=== PATIENT | female | born 1970 | race Caucasian/White ===

== ENCOUNTER 2016-11-19 09:06 | Emergency (ER) | payer OTHER ==
[~2016-11-19] VITALS: Ht 172.7 cm; Wt 63.0 kg
--- OUTSIDE RECORDS SUMMARY | 2016-11-19 09:14 | XMS REPORT | Continuity Of Care Document ---
Author Author [facility] Organization [facility] Address [address] [place] [address] Phone Care Team Providers Care Director [employer] Name Role Phone UNASSIGNED, PHYSICIAN Unavailable Unavailable GI DUFFY, Enio CP CESAR DUFFY, Hussein AT MURPHY CARMONA PP Results Lab Results Visit/Account #[id number] (August 22, 2015 9:16am - August 23, 2015 10:08am) Test Result Date/Time 58666-1: COMPLETE BLOOD COUNT WITH DIFF WHITE BLOOD COUNT(4.0-11.0 10E3/UL) 9.3 10E3/UL August 22, 2015 8:40am RED BLOOD COUNT(4.00-5.20 10E6/UL) 4.10 10E6/UL August 22, 2015 8:40am HEMOGLOBIN(12.0-16.0 G/DL) 12.8 G/DL August 22, 2015 8:40am HEMATOCRIT(36.0-46.0 %) 37.9 % August 22, 2015 8:40am MEAN CORPUSCULAR VOLUME(82.0-100.0 FL) 92.4 FL August 22, 2015 8:40am 27714-4: MEAN CORPUSCULAR HEMOGLOBIN(26.0-34.0 PG) 31.2 PG August 22, 2015 8:40am MEAN CORPUSCULAR HGB CONC(31.5-36.5 G/DL) 33.8 G/DL August 22, 2015 8:40am RED CELL DISTRIBUTION WIDTH(11.5-14.5 %) 12.5 % August 22, 2015 8:40am 777-3: PLATELET COUNT(150-450 10E3/UL) 174 10E3/UL August 22, 2015 8:40am MEAN PLATELET VOLUME(8.2-12.4 FL) 10.3 FL August 22, 2015 8:40am 770-8: NEUTROPHILS % (AUTO)(40-70 %) 85 % August 22, 2015 8:40am LYMPHOCYTES % (AUTO)(15-45 %) 9 % August 22, 2015 8:40am 5905-5: MONOCYTES % (AUTO)(2-10 %) 6 % August 22, 2015 8:40am 713-8: EOSINOPHILS % (AUTO)(0-6 %) 0 % August 22, 2015 8:40am 706-2: BASOPHILS % (AUTO)(0-1 %) 0 % August 22, 2015 8:40am 58186-2: IMMATURE GRANS % (AUTO)(0-0 %) 0 % August 22, 2015 8:40am NUCLEATED RBCS (AUTO)(0-0 %) 0 % August 22, 2015 8:40am 751-8: NEUTROPHILS # (AUTO)(2.5-7.5 10E3/UL) 7.9 10E3/UL August 22, 2015 8:40am 67685-9: LYMPHOCYTES # (AUTO)(1.0-4.0 10E3/UL) 0.8 10E3/UL August 22, 2015 8:40am 742-7: MONOCYTES # (AUTO)(0.2-0.8 10E3/UL) 0.6 10E3/UL August 22, 2015 8:40am 711-2: EOSINOPHILS # (AUTO)(0.0-0.4 10E3/UL) 0.0 10E3/UL August 22, 2015 8:40am 704-7: BASOPHILS # (AUTO)(0.0-0.2 10E3/UL) 0.0 10E3/UL August 22, 2015 8:40am IMMATURE GRANS # (AUTO)(0.0-0.0 10E3/UL) 0.0 10E3/UL August 22, 2015 8:40am DIFF TYPE AUTOMATED August 22, 2015 8:40am UA WITH SCREEN FOR CULTURE 5778-6: COLOR,URINE YELLOW August 22, 2015 9:30am 07414-2: CLARITY,URINE CLEAR August 22, 2015 9:30am GLUCOSE, URINE(NEGATIVE MG/DL) NEGATIVE MG/DL August 22, 2015 9:30am URINE BILIRUBIN(NEGATIVE) NEGATIVE August 22, 2015 9:30am 44716-1: KETONES,URINE(NEGATIVE MG/DL) NEGATIVE MG/DL August 22, 2015 9:30am 2965-2: URINE SPECIFIC GRAVITY(1.001-1.035) Greater than or equal to 1.030 August 22, 2015 9:30am 49933-3: URINE BLOOD(NEGATIVE) NEGATIVE August 22, 2015 9:30am 2756-5: URINE PH(5.0-9.0) 6.5 August 22, 2015 9:30am URINE PROTEIN(Less than 20 MG/DL) NEGATIVE MG/DL August 22, 2015 9:30am URINE UROBILINOGEN(0.2-1.0 MG/DL) 0.2 MG/DL August 22, 2015 9:30am URINE NITRITE(NEGATIVE) NEGATIVE August 22, 2015 9:30am 5799-2: LEUKOCYTE ESTERASE ,URINE(NEGATIVE) NEGATIVE August 22, 2015 9:30am 630-4: URINE CULTURE NOT INDICATED August 22, 2015 9:30am URINE MICROSCOPIC REQUIRED NO August 22, 2015 9:30am 11759-5: COMPLETE METABOLIC PROFILE GLUCOSE(70-110 MG/DL) 161 MG/DL August 22, 2015 8:40am BLOOD UREA NITROGEN(6-20 MG/DL) 11 MG/DL August 22, 2015 8:40am CREATININE(0.50-1.20 MG/DL) 0.77 MG/DL August 22, 2015 8:40am 63950-5: EST GLOMERULAR FILTRATION RATE(Greater than or equal to 60) Greater than or equal to 60 Result Comments: If the patient is of -[place] descent/extraction multiply the eGFR value by 1.212 to obtain the actual eGFR. >=60 mg/dL Normal 30-59 mg/dL Moderate Kidney Disease 15-29 mg/dL Severe Kidney Disease <15 mg/dL Kidney Failure August 22, 2015 8:40am BUN CREATININE RATIO(10.0-20.0 RATIO) 14.0 RATIO August 22, 2015 8:40am SODIUM(135-145 MMOL/L) 133 MMOL/L August 22, 2015 8:40am POTASSIUM(3.6-5.0 MMOL/L) 3.3 MMOL/L August 22, 2015 8:40am CHLORIDE(101-111 MMOL/L) 103 MMOL/L August 22, 2015 8:40am 8-9: CO2(21-31 MMOL/L) 23.0 MMOL/L August 22, 2015 8:40am 87206-7: ANION GAP(8-18) 10 August 22, 2015 8:40am OSMO CALCULATED(270.0-290.0) 269.3 August 22, 2015 8:40am CALCIUM(8.5-10.5 MG/DL) 8.6 MG/DL August 22, 2015 8:40am BILIRUBIN,TOTAL(0.1-1.2 MG/DL) 0.5 MG/DL August 22, 2015 8:40am ALKALINE PHOSPHATASE(42-121 IU/L) 58 IU/L August 22, 2015 8:40am ASPARTATE AMINO TRANSFERASE(10-42 IU/L) 28 IU/L August 22, 2015 8:40am ALANINE AMINOTRANSFERASE(10-60 IU/L) 25 IU/L August 22, 2015 8:40am 20116-7: TOTAL PROTEIN(6.4-8.2 G/DL) 7.8 G/DL August 22, 2015 8:40am ALBUMIN(3.5-5.5 G/DL) 4.3 G/DL August 22, 2015 8:40am 2336-6: GLOBULIN(2.4-3.6) 3.5 August 22, 2015 8:40am ALBUMIN/GLOBULIN RATIO(0.9-1.8 RATIO) 1.2 RATIO August 22, 2015 8:40am 3040-3: LIPASE 3040-3: LIPASE(22-51 U/L) 23 U/L August 22, 2015 8:40am Microbiology Results Visit/Account #[id number] (August 22, 2015 9:16am - August 23, 2015 10:08am) Procedure Result 42728-1: MRSA SCREEN FOR INFEC CONTROL 11151-6: MRSA SCREEN FOR INFEC CONTROL Result Instance On August 22, 2015 3:00pm Source: NARE Special Result Comments: No growth Allergies and Adverse Reactions Allergies and Adverse Reactions Patient Unit Number: [id number] Agent Type Reaction Severity Status PENICILLINS Drug Allergy Unknown Unknown Active ASPIRIN Drug Allergy Unknown Unknown Active Problem List Problem List Visit/Account #[id number] (August 22, 2015 9:16am - August 23, 2015 10:08am) Resolved Problems: Code/Condition Comments Documented Start Date Documented Resolved Date Code (s) Acute appendicitis August 23, 2015 ICD10: K35.80 Acute appendicitis ICD9: 540.9 Acute appendicitis SNOMED: 82694535 Acute appendicitis Plan of Care Plan Of Care Visit/Account #[id number] (August 22, 2015 9:16am - August 23, 2015 10:08am) Patient Instructions Instructions Appendectomy -- Laparoscopic Surgery Ciprofloxacin Metronidazole Oral Hydrocodone Vital Signs Vital Signs Visit/Account #[id number] (August 22, 2015 9:16am - August 23, 2015 10:08am) Sign First Result Last Result Code(s) Blood Pressure 103/ 59 mm[Hg] On August 22, 2015 4:00pm 88/ 54 mm[Hg] On August 23, 2015 5:12am 8480-6 BP Systolic Heart Rate/Pulse Pulse Rate (adult): 74 /min On August 22, 2015 4:00pm Pulse Rate (adult): 60 /min On August 23, 2015 5:12am 8867-4 Heart Rate 8893-0 Pulse rate Respiratory Rate Respiratory Rate: 16 /min On August 22, 2015 4:00pm Respiratory Rate: 16 /min On August 23, 2015 5:12am 9279-1 Respiratory rate Temperature in Fahrenheit Temperature (Fahrenheit): 97.8 [degF] On August 22, 2015 9:15am Temperature (Fahrenheit): 97.5 [degF] On August 23, 2015 5:12am 8310-5 Body Temperature Weight in Kilograms Weight (Kilograms): 94.3 kg On August 22, 2015 9:15am 3141-9 Weight Measured 45000-0 Body weight measured in kilograms Functional Status Functional and Cognitive Status No Functional Status Data Medications Home Medications - Medications that the patient was taking prior to arrival at the hospital Visit/Account #[id number] (August 22, 2015 9:16am - August 23, 2015 10:08am) Medication Route Sig/Schedule Precondition/Indication Comments/ Instructions Codes Cleocin(CLINDAMYCIN HCL) 150 MG CAPSULE Dose: 2 CAP ORAL 4 TIMES DAILY Clindamycin 150 MG Oral Capsule [Cleocin] (RxNorm): 337953 Cleocin (CLINDAMYCIN HCL) NDC: 30934360646 Harvoni 90-400 mg Tablet(LEDIPASVIR/SOFOSBUVIR) 1 EACH TABLET Dose: 90-400 DOSE ORAL DAILY@1700 ledipasvir 90 MG / sofosbuvir 400 MG Oral Tablet [Harvoni] (RxNorm): 3240717 Harvoni 90-400 mg Tablet (LEDIPASVIR/SOFOSBUVIR) NDC: 83755976674 ZANTAC(RANITIDINE HCL) 150 MG TABLET Dose: 150 MG ORAL TWICE A DAY prn Ranitidine 150 MG Oral Tablet [Zantac] (RxNorm): 717666 ZANTAC (RANITIDINE HCL) NDC: 75611132644 TYLENOL PM (500/25)(ACETAMINOPHEN/DIPHENHYDRAMINE) 1 TAB TAB Dose: 2 TAB ORAL AT BEDTIME prn Acetaminophen 500 MG / Diphenhydramine Hydrochloride 25 MG Oral Tablet [Mapap PM] (RxNorm): 9469838 TYLENOL PM (500/25) (ACETAMINOPHEN/DIPHENHYDRAMINE) NDC: 61990118879 Inpatient/Ordered Medications - Medications administered during hospital visit Visit/Account #[id number] (August 22, 2015 9:16am - August 23, 2015 10:08am) Medication Route Sig/Schedule Precondition/Indication Comments/ Instructions Codes MORPHINE SULFATE 4 MG/ML INJECTION Dose: 1 ML INTRAVEN NOW Label Comments: MAY INCREASE FALL RISK 1 ML Morphine Sulfate 4 MG/ML Prefilled Syringe (RxNorm): 011371 (MORPHINE SULFATE) NDC: 25604399497 ZOFRAN INJ(ONDansetron HCL) 4 MG/2 ML INJECTION Dose: 2 ML INTRAVEN NOW Label Comments: SLOW IV PUSH MAY INCREASE FALL RISK Ondansetron 2 MG/ML Injectable Solution (RxNorm): 090580 ZOFRAN INJ (ONDansetron HCL) NDC: 52306050698 IV Medication Carriers: NORMAL SALINE(SODIUM CHLORIDE) 1000 ML INJECTION Dose: 1000 ML INTRAVEN .Q1H (Rate: 1000 MLS/HR Duration: 1 HR) Carriers: Sodium Chloride 0.154 MEQ/ML Injectable Solution (RxNorm): 383596 NORMAL SALINE (SODIUM CHLORIDE) NDC: 27771354013 DILAUDID(HYDROmorphone HCL) 2 MG/ML INJECTION Dose: 0.5 ML INTRAVEN NOW Label Comments: MAY INCREASE FALL RISK 1 ML Hydromorphone Hydrochloride 2 MG/ML Prefilled Syringe (RxNorm): 960160 DILAUDID (HYDROmorphone HCL) NDC: 31366192546 IV Medication Carriers: INVanz 1 GM/50 ML(ERTAPENEM) 1 GM/50 ML INJECTION Dose: 50 ML INTRAVEN .Preop (Rate: 100 MLS/HR Duration: 30 MIN) PRN Reason: SURGICAL PROPHYLAXIS Label Comments: to be given by surgical area staff within 1 hr prior to surgical incision. DO NOT REFRIGERATE. DO NOT RUN WITH DEXTROSE ACTIVATE VIAL PRIOR TO ADMINISTRATION Expires 24 HRS after activation Carriers: ertapenem 20 MG/ML Injectable Solution [Invanz] (RxNorm): 023827 INVanz 1 GM/50 ML (ERTAPENEM) NDC: 70327141596 DILAUDID(HYDROmorphone HCL) 2 MG/ML INJECTION Dose: 2 MG Route .STK-MED 1 ML Hydromorphone Hydrochloride 2 MG/ML Prefilled Syringe (RxNorm): 725289 DILAUDID (HYDROmorphone HCL) NDC: 30460823144 MARCAINE 0.5%- EPINEPHRINE (1:680182) MPF(BUPIVACAINE/EPINEPHRINE) 30 ML INJECTION Dose: 30 ML INJECTION .STK-MED Bupivacaine Hydrochloride 5 MG/ML / Epinephrine 0.005 MG/ML Injectable Solution (RxNorm): 5213715 MARCAINE 0.5%- EPINEPHRINE (1:328444) MPF (BUPIVACAINE/EPINEPHRINE) NDC: 04892429055 IV Medication Carriers: NORMAL SALINE(SODIUM CHLORIDE) 1000 ML INJECTION Dose: 1000 ML INTRAVEN .Q10H (Rate: 100 MLS/HR Duration: 10 HR) Carriers: Sodium Chloride 0.154 MEQ/ML Injectable Solution (RxNorm): 848926 NORMAL SALINE (SODIUM CHLORIDE) NDC: 57727033120 REGLAN INJ(METOCLOPRAMIDE HCL) 5 MG/ML INJECTION Dose: 2 ML INTRAVEN Q6H PRN Reason: NAUSEA/VOMITING Metoclopramide 5 MG/ML Injectable Solution (RxNorm): 434533 REGLAN INJ (METOCLOPRAMIDE HCL) NDC: 19512731222 COLACE(DOCUSATE SODIUM) 100 MG CAP Dose: 100 MG ORAL TWICE A DAY Docusate Sodium 100 MG Oral Capsule (RxNorm): 1882822 COLACE (DOCUSATE SODIUM) NDC: 55094489702 NORCO 7.5-325(HYDROcodone BIT/ACETAMINOPHEN) 1 TAB TAB Dose: 0 TAB ORAL Q4H PRN Reason: MODERATE PAIN Label Comments: <<may be substituted for 7.5/500>> REC MAX DAILY ACETAMINOPHEN: 4000 MG/24 HR MAY INCREASE FALL RISK Special Dose Instructions: 1-2 TABS Acetaminophen 325 MG / Hydrocodone Bitartrate 7.5 MG Oral Tablet (RxNorm): 571783 NORCO 7.5-325 (HYDROcodone BIT/ACETAMINOPHEN) NDC: 90933440945 TUMS(CALCIUM CARBONATE) 500 MG TAB Dose: 500 MG ORAL NEEDED heartburn Label Comments: TAKE WITH FOOD Calcium Carbonate 500 MG Chewable Tablet (RxNorm): 512768 TUMS (CALCIUM CARBONATE) NDC: 70514963749 PEPCID(FAMOTIDINE) 20 MG TAB Dose: 20 MG ORAL TWICE A DAY Famotidine 20 MG Oral Tablet (RxNorm): 207003 PEPCID (FAMOTIDINE) NDC: 35149670456 NONFORMULARY MED(NON-FORMULARY MEDICATION) 1 EA EACH Dose: 0 EA ORAL DAILY@17 Label Comments: PATIENT OWN MEDICATION HARVONI 90/400MG (LEDIPASVIR/SOFOSBUVIR) LOT: [id number] EXP: 12/2016 [facility] RX# [id number] Special Dose Instructions: 1 TABLET Discharge Medications - Medications that patient should continue to take. Review with physician Visit/Account #[id number] (August 22, 2015 9:16am - August 23, 2015 10:08am) Medication Route Sig/Schedule Precondition/Indication Comments/ Instructions Codes Harvoni 90-400 mg Tablet(LEDIPASVIR/SOFOSBUVIR) 1 EACH TABLET Dose: 90-400 DOSE ORAL DAILY@1700 ledipasvir 90 MG / sofosbuvir 400 MG Oral Tablet [Harvoni] (RxNorm): 5872779 Harvoni 90-400 mg Tablet (LEDIPASVIR/SOFOSBUVIR) NDC: 57423385361 ZANTAC(RANITIDINE HCL) 150 MG TABLET Dose: 150 MG ORAL TWICE A DAY prn Ranitidine 150 MG Oral Tablet [Zantac] (RxNorm): 017016 ZANTAC (RANITIDINE HCL) NDC: 41207881669 TYLENOL PM (500/25)(ACETAMINOPHEN/DIPHENHYDRAMINE) 1 TAB TAB Dose: 2 TAB ORAL AT BEDTIME prn Acetaminophen 500 MG / Diphenhydramine Hydrochloride 25 MG Oral Tablet [Mapap PM] (RxNorm): 0039050 TYLENOL PM (500/25) (ACETAMINOPHEN/DIPHENHYDRAMINE) NDC: 93053855263 FLAGYL(MetroNIDAZOLE) 500 MG TABLET Dose: 500 MG ORAL TWICE A DAY Metronidazole 500 MG Oral Tablet [Flagyl] (RxNorm): 714528 FLAGYL (MetroNIDAZOLE) NDC: 93258175883 CIPRO(CIPROFLOXACIN HCL) 500 MG TABLET Dose: 500 MG ORAL TWICE A DAY Ciprofloxacin 500 MG Oral Tablet [Cipro] (RxNorm): 852247 CIPRO (CIPROFLOXACIN HCL) NDC: 10327457287 NORCO 7.5-325 TABLET(HYDROcodone BIT/ACETAMINOPHEN) 1 EACH TABLET Dose: 1-2 TAB ORAL EVERY 6 HOURS PAIN Acetaminophen 325 MG / Hydrocodone Bitartrate 7.5 MG Oral Tablet [Madras] ( RxNorm): 572616 NORCO 7.5-325 TABLET (HYDROcodone BIT/ACETAMINOPHEN) NDC: 88196906795 History Of Encounters Encounters Visit/Account #[id number] (August 22, 2015 9:16am - August 23, 2015 10:08am) Account Status Physican Of Record Reason For Visit Visit Diagnosis Start Date/Time Stop Date/Time ER LEOBARDO ANGELO MD ACUTE APPENDICITIS K35.3: ACUTE APPENDICITIS WITH LOCALIZED PERITONITIS ICD10 Aug 22, 2015 9:16am Aug 22, 2015 12:40pm [facility] [place] MD ACUTE APPENDICITIS K35.3: ACUTE APPENDICITIS WITH LOCALIZED PERITONITIS ICD10 Aug 22, 2015 10:58am Aug 22, 2015 10:58am [facility] INES GUERRERO MD ACUTE APPENDICITIS K35.3: ACUTE APPENDICITIS WITH LOCALIZED PERITONITIS ICD10 Aug 22, 2015 3:12pm Aug 23, 2015 10:08am History of Procedures Procedure List No procedures recorded. Discharge Instructions Discharge Instructions Visit/Account #[id number] (August 22, 2015 9:16am - August 23, 2015 10:08am) DISCHARGE INSTRUCTIONS Physician Documentation PROVIDER INSTRUCTIONS Discharge Diet Regular Discharge Activity/Weight Bearing Status As tolerated Other Discharge Instructions Work note in chart Discharge Diet Regular Discharge Activity/Weight Bearing Status As tolerated Other Discharge Instructions Work note in chart REASON TO CALL PROVIDER Notify Physician if: Increase in abdominal pain, temperature of over 100.4. FOLLOW UP APPOINTMENTS Follow Up With Dr. Guerrero in 7-10 days SundayAugust CHECK IN @ 9:30 AM Social History Social History No Social History Data. Immunizations Immunizations Patient Unit Number: [id number] Immunizations No immunizations recorded.
[2016-11-19] MEDS ORDERED: TETANUS, DIPTHERIA, PERTUSSIS (ADACELL) VACCINE 0.5 ML VIAL IM ONE (09:25)
[2016-11-19] MEDS ORDERED: LIDOCAINE/EPINEPHRINE 1% 1:100,000 (XYLOCAINE) 30 ML VIAL INJ ONE (09:25)
[2016-11-19] MEDS ORDERED: LORazepam 2 MG/ML (ATIVAN) 1 ML VIAL IM ONE (09:40)
[2016-11-19] MEDS ORDERED: HYDROcodone/APAP 5 MG/325 MG (NORCO) TAB PO PRN (10:45)
[2016-11-19] MEDS ORDERED: BACITRACIN OINTMENT 0.9 GM PACKET TOP ONE (10:45)
[2016-11-19] MEDS ORDERED: HYDR-3702 PO (10:49)
[2016-11-19 11:05] VITALS: BP 104/61
== END 2016-11-19 11:06 | disposition home or self-care (01) ==
LOC: ED 09:10
DX: S51.812A Laceration without foreign body of left forearm, initial encounter (principal); W25.XXXA Contact with sharp glass, initial encounter
CPT/HCPCS: 12002; 90471; 90715; 96372; 99283; J2060

== ENCOUNTER 2016-11-23 16:22 | Emergency (ER) | payer OTHER ==
[~2016-11-23] VITALS: Ht 175.3 cm; Wt 63.9 kg
[~2016-11-23 16:22] MED LIST: HYDR-3702 PO
--- NOTE | 2016-11-23 18:18 | Diagnostic Imaging Report ---
INDICATION: Injury to right hand. EXAMINATION: AP, oblique and lateral views of the right hand were obtained. FINDINGS: No fracture or acute bony abnormality is seen. Joint spaces are unremarkable. There is no radiopaque foreign body. IMPRESSION: No evidence of fracture or radiopaque foreign body. Dictated by: Dictated on workstation # [id number]
--- NOTE | 2016-11-23 18:19 | Diagnostic Imaging Report ---
INDICATION: Injury to right wrist, laceration. EXAMINATION: AP, lateral and oblique views of the right wrist were obtained. FINDINGS: No fracture or acute bony abnormality is seen. There is no radiopaque foreign body. IMPRESSION: No evidence of fracture or radiopaque foreign body. Dictated by: Dictated on workstation # [id number]
[2016-11-23] MEDS ORDERED: PRED20TA PO (19:01)
[2016-11-23] MEDS ORDERED: HYDR-3702 PO (19:01)
[2016-11-23 19:23] VITALS: BP 123/77
== END 2016-11-23 19:17 | disposition home or self-care (01) ==
LOC: EDUNIT# 16:22 → ED 16:24
DX: M79.632 Pain in left forearm (principal); R20.0 Anesthesia of skin; F17.210 Nicotine dependence, cigarettes, uncomplicated
CPT/HCPCS: 73110; 73130; 99282; 99283

== ENCOUNTER → 2016-12-01 | Emergency (ER) | payer SELFPAY ==
[~2016-12-01] VITALS: Ht 175.3 cm; Wt 63.5 kg
[~2016-12-01] MED LIST changes: +PRED20TA PO
--- OUTSIDE RECORDS SUMMARY | 2016-12-01 18:54 | XMS REPORT | Continuity of Care Document ---
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 [id number] Geovanna Johnson 18 Self / Same As Patient Advance Directives Directive Response Recorded Date/Time Advanced Directives Unknown 11/23/16 4:33pm Chief Complaint and Reason for Visit Chief Complaint Circulatory Compromise Reason for Visit Hand pain, left Problems Active Problems Medical Problem Onset Date Status Hand pain, left Unknown Acute Laceration of left forearm ~11/19/2016 Acute Medications Current Home Medications Medication Dose Units Route Directions Days/Qty Instructions Start Date Hydrocodone Bit/Acetaminophen 1 Each 1 Each ORAL Every 4HRS 10 Prednisone 20 Mg 20 Mg ORAL Three Times A Day 15 11/23/16 Hydrocodone Bit/Acetaminophen 1 Each 1 Each ORAL Every 4HRS for Pain 18 11/23/16 Social History Query Response Start Date Stop Date Smoking Status Current every day smoker Hospital Discharge Instructions No hospital discharge instructions. Plan of Care Discharge Date 11/23/16 7:17pm Disposition 01 HOME OR SELF-CARE Condition at Discharge Stable Instructions/Education Provided Paresthesias (DC) Prescriptions See Medication Section Additional Instructions/Education TAke the steroids to help with swelling as directed Follow up on Sunday if numbness and decreased range of motion haven't resolved. Hydrocodone/APAP 5/325 every 4 hours as needed for pain Return if symptoms worsen Some of your test results may not be complete prior to your leaving the Emergency Department. The Emergency Department is not authorized to give test results over the phone. Please contact the doctor's office listed in this packet of information for your final results. Follow up with your primary care physician or return to the Emergency Department for worsening or worrisome symptoms. * Emergency Department phone number: [phone], x [phone]* MEDICAL RECORD If you need copies of your X-rays, call [phone]. If you need copies of your medical record, including lab results, a signed authorization for release of records will be required. A telephone call for release of Health Information is not allowed. BILLING Billing can sometimes be confusing and frustrating. To help avoid confusion in the future, please take a moment to acquaint yourself with the billing parties for services. SERVICE BILLING [facility] Emergency Room Services [facility] Physician Services [facility] X-rays [facility] Patients will receive bills for services from the appropriate provider. If you have any questions about your [facility] bill, our staff will be happy to assist you. Please call [phone], and ask for the billing department. THANK YOU for choosing [facility] as your emergency care provider! Care Plan and Goals ~~Discharge Care Plan~~ Problem: Contusion, pain to affected area, fall. Goal: Decreased contusion and pain to affected area. Instructions: Apply ice to area for 15-20 minutes every 3-4 hours. Elevate extremity above the level of the heart, if applicable. Splint area with pillow or blanket to any chest/abdomen injuries. Use incentive spirometry as directed. Take at least 10 deep breaths per hour. Take medication(s) as directed. Follow up with regular physician or specialist as directed. Exercise as tolerated or directed by physician. Functional Status No functional status results. Allergies, Adverse Reactions, Alerts Allergen Type Severity Reaction Status Last Updated Penicillin Allergy Unknown Anaphylaxis Active 11/19/16 Aspirin Allergy Unknown Anaphylaxis Active 11/19/16 Immunizations Name Given Type Status Tdap 11/19/16 Administered Completed Vital Signs Acute Vital Signs Vital Response Date/Time Temperature (Fahrenheit) 98.1 11/23/2016 7:23pm Pulse 85 bpm 11/23/2016 7:23pm Respirations 18 11/23/2016 7:23pm Height 5 ft 9 in Weight 140 lb Body Mass Index 20.0 kg/m^2 Results No known relevant diagnostic tests, laboratory data and/or discharge summary. Procedures No known history of procedures. Encounters Encounter Location Arrival/Admit Date Discharge/Depart Date Attending Provider Departed Emergency Room [facility] 11/23/16 4:24pm 11/23/16 7:17pm JIL ROGEL MD Departed Emergency Room [facility] 11/19/16 9:10am 11/19/16 11:06am JIL ROGEL MD Recent Diagnosis
--- NOTE | 2016-12-01 19:15 | NUR ---
Pt here for suture removal VSS. Sutures were removed from her left wrist, site is clean and dry at this time. Pt was dismissed.
[2016-12-01 19:25] VITALS: BP 126/77
== END | disposition home or self-care (01) ==
LOC: EUOP 18:51
DX: Z48.02 Encounter for removal of sutures (principal)